=== PATIENT | female | born 1955 | race Two or more races ===

== ENCOUNTER 2021-05-08 18:57 | Emergency (ER) | payer MEDICARE, MEDICAID ==
[~2021-05-08] VITALS: Ht 172.7 cm; Wt 74.8 kg
[2021-05-08 19:04] VITALS: BP 126/99
[2021-05-08 19:49] LABS: Basophils # (auto) 0.1 10 ^3/uL (0-0.2); Basophils % (auto) 0.8 % (0.0-2.0); Eosinophils # (auto) 0.2 10 ^3/uL (0-0.8); Eosinophils % (auto) 2.1 % (0.0-7.0); Hematocrit 40.2 % (36.0-46.0); Hemoglobin 13.7 g/dL (12.2-16.2); Lymphocytes # (auto) 2.6 10 ^3/uL (0.4-5.4); Lymphocytes % (auto) 27.3 % (10.0-50.0); Mean Corpuscular Hemoglobin 29.9 pg (28.0-32.0); Monocytes # (auto) 0.5 10 ^3/uL (0-1.3); Neutrophils % (auto) 64.8 % (37.0-80.0); Red Blood Cells 4.57 10^6/uL (4.0-5.20); Red Cell Distribution Width 13.7 % (11.8-14.3); White Blood Cell 9.3 10^3/uL (4.4-10.8)
[2021-05-08 20:12] LABS: BUN/Creatinine Ratio 19.5; Calcium 9.8 mg/dL (8.5-10.1); Potassium 3.3 mmol/L (3.5-5.1)
[2021-05-08 20:15] LABS: Bilirubin, Total 0.3 mg/dL (0.2-1.0); Total Protein 7.4 g/dL (6.4-8.2)
[2021-05-09 01:41] LABS: Urine Bacteria NONE SEEN /hpf (None Seen); Urine Blood Negative /uL (Negative); Urine Hyaline Cast FEW /lpf (0 - 2); Urine Mucus FEW (None Seen); Urine Specific Gravity 1.028 (1.001-1.035); Urine WBC 23 /hpf (0 - 5)
== END 2021-05-09 00:45 | disposition left against medical advice (07) ==
LOC: ER 18:59
DX: R10.9 Unspecified abdominal pain (principal); Z53.21 Procedure and treatment not carried out due to patient leaving prior to being seen by health care provider
CPT/HCPCS: 36415; 80053; 81001; 85025; 93005

== ENCOUNTER → 2022-03-01 | Outpatient (CLI) | payer MEDICARE, MEDICAID | END | disposition home or self-care (01) | LOC: LAB 06:38 | PROVIDERS: ATTEND Urology | DX: Z01.812 Encounter for preprocedural laboratory examination (principal) | CPT/HCPCS: 36415; 82565; 84520 ==